=== PATIENT | female | born 1985 | race Caucasian/White ===

== ENCOUNTER 2019-08-02 15:55 | Emergency (ER) | payer BC ==
[2019-08-02 17:49] LABS: ABS Lymphocytes 0.6 10^3/ul (1.0-4.8); ABS Monocytes 0.3 10^3/ul (0-0.8); ABS Neutrophils 5.5 10^3/ul (1.5-7.7); Eosinophil % 0.1 %; Hematocrit 44 % (35-47); Hemoglobin 15.3 g/dL (12.0-16.0); Mean Corpuscular HGB Conc 35 g/dL (31-36); Mean Corpuscular Hemoglobin 29 pg (27-31); Mean Corpuscular Volume 84 fL (80-97); Mean Platelet Volume 7.9 fL (7.4-10.4); Nucleated Red Blood Cells % 0.1; Platelet Count 191 10^3/uL (150-450); Red Blood Count 5.25 10^6 /uL (3.70-4.87); Red Cell Distribution Width 13 % (10-15); White Blood Count 6.4 10^3/uL (3.5-10.8)
[2019-08-02 18:08] LABS: ALT 17 U/L (7-52); AST 17 U/L (13-39); Albumin 4.8 g/dL (3.2-5.2); Albumin/Globulin Ratio 1.8 (1-3); Alkaline Phosphatase 46 U/L (34-104); Anion Gap 6 mmol/L (2-11); BUN/Creatinine Ratio 15.3 (8-20); Blood Urea Nitrogen 13 mg/dL (6-24); C Reactive Protein 22.64 mg/L (<8.01); CO2 Carbon Dioxide 25 mmol/L (22-32); Calcium 9.8 mg/dL (8.6-10.3); Chloride 104 mmol/L (101-111); EGFR African American 91.6 (>60); EGFR Non-African American 75.7 (>60); Globulin 2.6 g/dL (2-4); Glucose 126 mg/dL (70-100); Potassium 3.9 mmol/L (3.5-5.0); Sodium 135 mmol/L (135-145); Total Protein 7.4 g/dL (6.4-8.9)
[2019-08-02 18:10] LABS: HCG Pregnancy < 0.60 mIU/mL
[2019-08-02] MEDS ORDERED: Pantoprazole IV* 40 MG IV ONE (19:26)
[2019-08-02] MEDS ORDERED: Ketorolac INJ* 30 MG/ML 1 ML VIAL IV PUSH ONE (19:26)
[2019-08-02] MEDS ORDERED: Ondansetron INJ* 2 MG/ML VIAL IV ONE (19:26)
[2019-08-02] MEDS ORDERED: NS 0.9% 1000 ML** 1,000 ML IV ONE (19:26)
--- NOTE | 2019-08-02 19:34 | ED ---
Abdominal Pain/Female - HPI Summary HPI Summary: 34 year old F arriving via private car with complains of sharp, cramping , burning LUQ and epigastric pain starting 1930 yesterday 08/01/2019. She states the pain is mostly non-radiating but intermittently radiates to her left flank. Patient reports chills x24 hours, fever x12 hours, headache x12 hours, nausea after eating. Patient denies vomiting/diarrhea. Symptoms rated 8/10 in severity. Symptoms aggravated by eating/drinking. Symptoms alleviated by nothing. Patient took Tums earlier today with no relief. Patient has not taken any other medications prior to arrival. Patient has not had similar symptoms in the past. Medications reviewed. Allergies reviewed. Surgical hx cholecystectomy. Patient states today's symptoms are not similar to the ones she had before having cholecystectomy. MP 07/30/2019. No hx tobacco, drug, alcohol use. - History of Current Complaint Chief Complaint: EDAbdPain Stated Complaint: FEVER/ABD PAIN PER PT Time Seen by Provider: 08/02/19 19:25 Hx Obtained From: Patient Onset/Duration: Lasting Hours - 24, Still Present Timing: Constant Severity Currently: Severe Pain Intensity: 8 Pain Scale Used: 0-10 Numeric Location: Discrete At: LUQ, Epigastric Radiates: Yes Radiates to: Flank - Left Character: Sharp, Burning, Cramping Aggravating Factor(s): Other: - eating/drinking Alleviating Factor(s): Nothing Associated Signs and Symptoms: Positive: Fever, Other: - chills, headache. Negative: Vomiting, Diarrhea Allergies/Adverse Reactions: Allergies Allergy/AdvReac Type Severity Reaction Status Date / Time aspirin Allergy See Comment Verified 08/02/19 16:13 ibuprofen [From Motrin] Allergy See Comment Verified 08/02/19 16:13 ketorolac [From Toradol] Allergy See Comment Verified 08/02/19 16:13 meperidine [From Demerol] Allergy Hives Verified 08/02/19 16:13 Home Medications: Home Medications Metoclopramide LIQ* [Reglan LIQ*] 5 mg PO QID #150 ml 08/02/19 [Rx] PMH/Surg Hx/FS Hx/Imm Hx GI History: Denies: Hx Gastroesophageal Reflux Disease Sensory History: Reports: Hx Contacts or Glasses Opthamlomology History: Reports: Hx Contacts or Glasses Neurological History: Reports: Hx Headaches, Hx Migraine - Surgical History Surgery Procedure, Year, and Place: section 2009. cholecystectomy Infectious Disease History: No Infectious Disease History: Denies: Traveled Outside the [place] in Last 30 Days - Family History Known Family History: Positive: Other - NEG: Cancer - Social History Alcohol Use: None Hx Substance Use: No Substance Use Type: Reports: None Hx Tobacco Use: No Smoking Status (MU): Never Smoked Tobacco Review of Systems Positive: Fever, Chills Positive: Abdominal Pain - LUQ, epigastric, Nausea. Negative: Vomiting, Diarrhea Positive: Headache All Other Systems Reviewed And Are Negative: Yes Physical Exam - Summary Physical Exam Summary: General: Well-developed, Well-nourished FEMALE. She appears in mild discomfort. HEENT: Normocephalic, Atraumatic. Eyes: Conjuctiva normal, PERRL. Oropharynx: Clear, mucous membranes moist, (-) exudates. Neck: Soft, FROM, (-) lymphadenopathy, (-) thyromegaly, (-) JVD. Cardiovascular: Normal sinus rhythm, (-) murmur. Lungs: Clear to auscultation bilaterally (-) wheezes, (-) rales, (-) rhonchi. Abdomen: Soft, she has mild epigastric and LUQ tenderness to palpitation, non- distended, (-) organomegaly, normal bowel sounds. Back: (-) CVA tenderness Extremities: No edema. Skin: Warm, dry, (-) rash. Neuro: Alert and oriented x3, moves all extremities equally. No ataxia. No gait disturbance. No sensory deficit. Normal strength, normal sensation. Psychiatric: Mood normal, affect normal. Triage Information Reviewed: Yes Vital Signs On Initial Exam: Initial Vitals Temp Pulse Resp BP Pulse Ox 100.5 F 113 20 123/90 99 08/02/19 16:08 08/02/19 16:08 08/02/19 16:08 08/02/19 16:08 08/02/19 16:08 Vital Signs Reviewed: Yes Procedures - Sedation Patient Received Moderate/Deep Sedation with Procedure: No Diagnostics - Vital Signs Vital Signs Temp Pulse Resp BP Pulse Ox 08/02/19 16:08 100.5 F 113 20 123/90 99 - Laboratory Lab Results: Lab Results 02/28/20 02/28/20 Range/Units 17:32 17:32 WBC 6.4 (3.5-10.8) 10^3/uL RBC 5.25 H (3.70-4.87) 10^6 /uL Hgb 15.3 (12.0-16.0) g/dL Hct 44 (35-47) % MCV 84 (80-97) fL MCH 29 (27-31) pg MCHC 35 (31-36) g/dL RDW 13 (10-15) % Plt Count 191 (150-450) 10^3/uL MPV 7.9 (7.4-10.4) fL Neut % (Auto) 85.5 % Lymph % (Auto) 9.0 % [place] % (Auto) 5.2 % Eos % (Auto) 0.1 % Baso % (Auto) 0.2 % Absolute Neuts (auto) 5.5 (1.5-7.7) 10^3/ul Absolute Lymphs (auto) 0.6 L (1.0-4.8) 10^3/ul Absolute Monos (auto) 0.3 (0-0.8) 10^3/ul Absolute Eos (auto) 0.0 (0-0.6) 10^3/ul Absolute Basos (auto) 0.0 (0-0.2) 10^3/ul Absolute Nucleated RBC 0.0 10^3/ul Nucleated RBC % 0.1 Sodium 135 (135-145) mmol/L Potassium 3.9 (3.5-5.0) mmol/L Chloride 104 (101-111) mmol/L Carbon Dioxide 25 (22-32) mmol/L Anion Gap 6 (2-11) mmol/L BUN 13 (6-24) mg/dL Creatinine 0.85 (0.51-0.95) mg/dL Est GFR ( Amer) 91.6 (>60) Est GFR (Non-Af Amer) 75.7 (>60) BUN/Creatinine Ratio 15.3 (8-20) Glucose 126 H (70-100) mg/dL Calcium 9.8 (8.6-10.3) mg/dL Total Bilirubin 0.60 (0.2-1.0) mg/dL AST 17 (13-39) U/L ALT 17 (7-52) U/L Alkaline Phosphatase 46 (34-104) U/L C-Reactive Protein 22.64 H (<8.01) mg/L Total Protein 7.4 (6.4-8.9) g/dL Albumin 4.8 (3.2-5.2) g/dL Globulin 2.6 (2-4) g/dL Albumin/Globulin Ratio 1.8 (1-3) Lipase 13 (11.0-82.0) U/L Beta HCG, Quant < 0.60 mIU/mL Result Diagrams: 08/02/19 17:32 08/02/19 17:32 Lab Statement: Any lab studies that have been ordered have been reviewed, and results considered in the medical decision making process. - CT ABDOMEN/PELVIS CT Interpretation Completed By: Radiologist - IMPRESSION: 1. Mild wall thickening of numerous small bowel loops in the abdomen and pelvis which could represent infectious or inflammatory enteritis. No bowel obstruction. 2. Post cholecystectomy. 3. Trace free fluid in left pelvis. ED physician has reviewed this imaging report. Re-Evaluation - Re-Evaluation First Eval Re-Evaluation Time: 21:09 Comment: patient still having waxing and waning pain afte receiving medications. will order CT ABDOMEN/PELVIS Second Eval Re-Evaluation Time: 22:30 Comment: patient updated on CT ABD/PEL findings. patient states she changed her diet recently. she was advised to drink fluids and to take pain medications. patient still complaining of pain. will order Reglan Abdominal Pain Fem Course/Dx - Course Course Of Treatment: 34-year-old female presents with upper abdominal pain. She describes pain in the left upper quadrant and epigastric area. she states every time she eats anything today that makes the pain worse. she has had chills and low-grade Fevers the past 24 hours.describes a headache. No vomiting or diarrhea. Has tried Tums without relief. Pain sometimes goes through to the back. Mostly stays in the upper abdomen. On physical exam she has mild tenderness in the epigastric area and left upper quadrant. Appears in mild discomfort. Tmax 100.5. laboratories demonstrated a normal white count. No urinary tract infection. CT abdomen and pelvis demonstrates trace of the small bowel. Patient given IV fluids, Protonix, Zofran initially with minimal relief. Given Reglan IV with relief. Patient discharged home with 2 doses of Reglan and a prescription. Advised clear fluids for the next day or so. Then advance very slowly to prevent diet. Follow-up with PCP. Follow-up sooner for any worsening symptoms. - Diagnoses Provider Diagnoses: Gastroenteritis Discharge ED - Sign-Out/Discharge Documenting (check all that apply): Patient Departure - Discharge Plan Condition: Stable Disposition: HOME Prescriptions: Metoclopramide LIQ* [Reglan LIQ*] 5 mg PO QID #150 ml Patient Education Materials: Gastroenteritis (ED) Referrals: [facility] [Outside] - 3 Days Additional Instructions: Follow up with [facility] in 3 days. Return to the Emergency Department for changing or worsening symptoms. - Billing Disposition and Condition Condition: STABLE Disposition: Home - Attestation Statements Document Initiated by Denishaibe: Yes Documenting Scribe: Juani Smith Provider For Whom Anthony is Documenting (Include Credential): Malaika Weber MD Scribe Attestation: Juani Onofre, scribed for Malaika Weber MD on 08/03/19 at 0140. Scribe Documentation Reviewed: Yes Provider Attestation: The documentation as recorded by the Juani manriquez accurately reflects the service I personally performed and the decisions made by me, Malaika Weber MD Status of Scribe Document: Viewed
[2019-08-02 20:35] LABS: Urine Appearance Clear; Urine Bilirubin Negative (Negative); Urine Blood 3+ (Negative); Urine Color Yellow; Urine Glucose Negative (Negative); Urine Ketones 1+ (Negative); Urine Nitrite Negative (Negative); Urine Protein Negative (Negative); Urine Specific Gravity 1.025 (1.010-1.030); Urine Urobilinogen Negative (Negative)
[2019-08-02 20:40] LABS: Urine Bacteria Absent (Absent); Urine Red Blood Cell 3+(>10/hpf) (Absent); Urine Squamous Epithelial Cell Present (Absent); Urine White Blood Cell Trace(0-5/hpf) (Absent)
[2019-08-02 20:59] LABS: Influenza A Molecular Negative (Negative); Influenza B Molecular Negative (Negative)
[2019-08-02] MEDS ORDERED: Iohexol 300* (CONTRAST) 10 ML SDV IV ONE (21:19)
[2019-08-02] MEDS ORDERED: Metoclopramide IV* 5 MG/ML 2 ML VIAL IV SLOW PU ONE (22:36)
[2019-08-02] MEDS ORDERED: Metoclopramide LIQ* 10 MG/10 ML ORAL.SOLN PO PRN (23:45)
[2019-08-03 00:17] VITALS: BP 121/74
== END 2019-08-03 | disposition home or self-care (01) ==
LOC: ED 15:55
DX: K52.9 Noninfective gastroenteritis and colitis, unspecified (principal); Z90.49 Acquired absence of other specified parts of digestive tract; Z88.6 Allergy status to analgesic agent; Z88.5 Allergy status to narcotic agent
CPT/HCPCS: 36415; 74177; 80053; 81003; 81015; 83690; 84702; 85025; 86140; 86308; 87086; 96361; 96374; 96375; 96376; 99284; J2405; J2765; Q9967